=== PATIENT | female | born 1995 | race Caucasian/White ===

== ENCOUNTER 2018-01-19 18:07 | Emergency (ER) | payer OTHER ==
[2018-01-19 19:07] LABS: BASO % 0.3 % (0.0-2.0); EOS # 0.1 K/uL (0.0-0.7); EOS % 2.2 % (0.0-4.0); HEMOGLOBIN 12.6 g/dL (11.0-16.0); LYMPH # 2.1 K/uL (1.0-4.3); LYMPH % 33.8 % (20.0-40.0); MEAN CELL VOLUME 91.8 fL (81.0-99.0); MEAN CORPUSCULAR HEMOGLOBIN 30.5 pg (27.0-31.0); MEAN CORPUSCULAR HGB CONC 33.2 g/dL (33.0-37.0); MONO # 0.5 K/uL (0.0-0.8); MONO % 7.2 % (0.0-10.0); NEUT # 3.6 K/uL (1.8-7.0); NEUT % 56.5 % (50.0-75.0); NRBC % 0.1 % (0.0-2.0); RBC 4.14 Mil/uL (3.80-5.20); RED CELL DISTRIBUTION WIDTH 14.3 % (11.5-14.5); WHITE BLOOD COUNT 6.3 K/uL (4.8-10.8)
[2018-01-19 19:13] LABS: SQUAMOUS EPITHIAL 1 /hpf (0-5); URINE BILIRUBIN NEGATIVE (NEGATIVE); URINE BLOOD 2+ (NEGATIVE); URINE CLARITY Clear (Clear); URINE COLOR Yellow (YELLOW); URINE GLUCOSE (UA) NORMAL (Normal); URINE LEUKOCYTE ESTERASE NEG Leu/uL (Negative); URINE PROTEIN NEGATIVE (NEGATIVE); URINE UROBILINOGEN NORMAL mg/dL (0.2-1.0)
[2018-01-19 19:26] LABS: ALB/GLOB RATIO 1.4 (1.0-2.1); ALBUMIN 4.2 g/dL (3.5-5.0); ALT/SGPT 26 U/L (9-52); AST/SGOT 19 U/L (14-36); BLOOD UREA NITROGEN 11 mg/dL (7-17); GFR AFRICAN-AMERICAN > 60; GFR NON-AFRICAN AMERICAN > 60
--- NOTE | 2018-01-19 20:06 | C.PDOC ---
History Of Present Illness 23yo female with history of asthma, comes to ER with complaints of diarrhea and vomiting x 3 days. Patient also reports a possible tactile fever 3 days ago. She states her last vomiting episode was yesterday and she was able to tolerate PO intake today; patient states she had 3x diarrhea episodes today. She reports a history of irregular menstrual cycle, is unsure of LMP but states her current menstrual period started today. She reports a 4 year history of chronic right lower quadrant pain for which she had multiple sonograms with no clear diagnosis ; patient states she has not followed up regarding the pain in the past 4 years. She reports her abdominal pain today is worse than normal, and reports she passed multiple dime sized clots including "something pink and squishy." Patient denies any weakness, changes in appetite, and offers no additional medical complaints. Of note, patient states she only has female partners. PMD: None provided Time Seen by Provider: 01/19/18 19:10 Chief Complaint (Nursing): Abdominal Pain History Per: Patient History/Exam Limitations: no limitations Onset/Duration Of Symptoms: Days, Persistent Current Symptoms Are (Timing): Still Present Location Of Pain/Discomfort: RLQ Quality Of Discomfort: "Pain" Associated Symptoms: Fever (tactile), Vomiting, Diarrhea Abnormal Vaginal Bleeding: No Last Menstral Period: Currently on menstrual cycle Past Medical History Reviewed: Historical Data, Nursing Documentation, Vital Signs Vital Signs: Last Vital Signs Temp 98.3 F 01/19/18 20:50 Pulse 72 01/19/18 20:50 Resp 18 01/19/18 20:50 BP 118/73 01/19/18 20:50 Pulse Ox 100 01/25/18 11:46 - Medical History PMH: Asthma Surgical History: No Surg Hx Family History: States: No Known Family Hx - Social History Hx Alcohol Use: No Hx Substance Use: Yes (Marijuana) - Immunization History Hx Tetanus Toxoid Vaccination: (unk) Hx Influenza Vaccination: No Hx Pneumococcal Vaccination: (unk) Review Of Systems Constitutional: Positive for: Fever (tactile fever 3 days ago). Negative for: Weakness Respiratory: Negative for: Shortness of Breath, Wheezing Gastrointestinal: Positive for: Vomiting, Abdominal Pain, Diarrhea Genitourinary: Positive for: Other (currently on menstrual period) Physical Exam - Physical Exam Appears: Non-toxic, No Acute Distress Skin: Normal Color Head: Normacephalic Neck: Supple Chest: Symmetrical Cardiovascular: Rhythm Regular Respiratory: Normal Breath Sounds Gastrointestinal/Abdominal: Bowel Sounds (normal), Soft, Tenderness (mild right lower quadrant/pelvic tenderness), No Mass, No Guarding, No Rebound Back: Normal Inspection Extremity: Normal ROM Neurological/Psych: Oriented x3, Normal Speech, Normal Cognition ED Course And Treatment - Laboratory Results Result Diagrams: 01/19/18 19:00 01/19/18 19:00 O2 Sat by Pulse Oximetry: 100 (RA) Pulse Ox Interpretation: Normal Medical Decision Making Medical Decision Making: Impression: 1. Gastroenteritis, resolving nausea, vomiting and diarrhea 2. Worsening chronic pelvic pain Plan: -- Labs -- Urinalysis -- Urine HCG -- US Transvaginal 2036 pt reports she does not want to stay for the sonogram. p0t understands risks of leaving [facility] including , ovarian torsion. infection. worsening of condition. pt to be referred to photographer apprentice lithographic for outpatient further f/;u/ pt's family member present during conversatin about risks of leaving [facility]. Disposition - Disposition [facility] [Outside] Disposition: AGAINST MEDICAL ADVICE Disposition Time: 20:41 (\\) Condition: STABLE Instructions: Viral Gastroenteritis, Adult (DC), Acute Pelvic Pain (DC) Forms: [facility] ([place]), General Discharge Instructions - Clinical Impression Clinical Impression: Gastroenteritis, Pelvic pain - PA / [employer]OMOTIVE TECHNICIAN / Resident Statement MD/DO has reviewed & agrees with the documentation as recorded. - Scribe Statement The provider has reviewed the documentation as recorded by the Jacquie Henriquez Provider Attestation: All medical record entries made by the Jacquie were at my direction and personally dictated by me. I have reviewed the chart and agree that the record accurately reflects my personal performance of the history, physical exam, medical decision making, and the department course for this patient. I have also personally directed, reviewed, and agree with the discharge instructions and disposition.
[2018-01-19 20:53] VITALS: BP 118/73; PULSE 72; RESP 18; TEMP 98.3
[2018-01-25 11:46] VITALS: O2SAT 100
== END 2018-01-19 20:50 | disposition left against medical advice (07) ==
LOC: C.ER 18:07
DX: K52.9 Noninfective gastroenteritis and colitis, unspecified (principal); R10.2 Pelvic and perineal pain